=== PATIENT | male | born 1950 | race Two or more races ===

== ENCOUNTER 2024-08-06 14:43 | Emergency (ER) | payer MEDICAID ==
[~2024-08-06] VITALS: Ht 172.7 cm; Wt 81.8 kg
[2024-08-06 14:54] VITALS: TEMP 98.1
[2024-08-06] MEDS ORDERED: AMLO-257 PO (14:57)
[2024-08-06] MEDS ORDERED: APIX5TAB PO (14:57)
[2024-08-06] MEDS ORDERED: BUME1TAB50 PO (14:57)
[2024-08-06] MEDS ORDERED: ATOR40TA28 PO (14:57)
[2024-08-06] MEDS ORDERED: ASPI-1450 PO (14:57)
[2024-08-06] MEDS ORDERED: METO25XL PO (14:57)
[2024-08-06 15:46] LABS: HEMATOCRIT 42.9 % (41-53); HEMOGLOBIN 13.8 g/dL (13.5-17.5); MEAN CORPUSCULAR HEMOGLOBIN 28.4 pg (26.0-34.0); MEAN CORPUSCULAR HGB CONC 32.2 G/dL (31.0-37.0); MEAN CORPUSCULAR VOLUME 88 fL (80-100); PLATELET COUNT (AUTO) 215 K/uL (150-450); RED BLOOD CELL COUNT(AUTO) 4.86 MIL/uL (4.50-5.90); RED CELL DISTRIBUTION WIDTH 14.9 % (11.5-14.5)
[2024-08-06 15:56] LABS: WHITE BLOOD COUNT (AUTO) 56.3 K/uL (4.5-11.0)
[2024-08-06 15:57] LABS: ANION GAP 8 mmol/L (8-16); CALCIUM, TOTAL 8.5 mg/dL (8.8-10.5); CARBON DIOXIDE 26 mmol/L (22-29); CHLORIDE 104 mmol/L (98-107); CREATININE 0.78 mg/dL (0.60-1.30); GLOMERULAR FILTR. RATE CALC > 60 mL/min (>60); GLUCOSE,RANDOM 95 mg/dL (70-110); POTASSIUM 4.1 mmol/L (3.5-5.1); SODIUM SERUM 138 mmol/L (136-145); UREA NITROGEN, BLOOD 23 mg/dL (7-18)
[2024-08-06 15:58] LABS: BAND NEUTROPHILS % (MANUAL) 0 % (0-5)
[2024-08-06 16:01] LABS: B-TYPE NATRIURETIC PEPTIDE 975 pg/mL (0-100)
[2024-08-06 16:02] LABS: CREATINE KINASE, TOTAL ONLY 39 U/L (39-308)
[2024-08-06 16:16] LABS: TROPONIN I-HIGH SENSITIVITY 30 ng/L (<76)
[2024-08-06 16:46] LABS: APPEARANCE,URINE CLEAR (CLEAR); BILIRUBIN,URINE NEGATIVE (NEGATIVE); COLOR,URINE LIGHT YELLOW (YELLOW); GLUCOSE, URINE (UA) NEGATIVE (NEGATIVE); KETONES,URINE NEGATIVE (NEGATIVE); LEUKOCYTE ESTERASE ,URINE NEGATIVE (NEGATIVE); NITRATE,URINE NEGATIVE (NEGATIVE); OCCULT BLOOD,URINE NEGATIVE (NEGATIVE); PH,URINE 5.5 (5.0-8.0); PROTEIN,URINE TRACE mg/dL (NEGATIVE); SPECIFIC GRAVITIY, URINE 1.029 (1.003-1.030); UROBILINOGEN,URINE <=1.0 mg/dL (<=1.0)
[2024-08-06 17:13] LABS: LYMPHOCYTES % (MANUAL) 10 % (22-44); MONOCYTES % (MANUAL) 5 % (2-9); REACTIVE LYMPHOCYTES 68 % (0-0); SEGMENTED NEUTROPHILS % 17 % (40-70); TOTAL CELLS COUNTED 100
[2024-08-06 17:14] LABS: RBC MORPHOLOGY COMMENT ABNORMAL RBC MORPH
[2024-08-06 17:16] LABS: ALANINE AMINOTRANSFERASE 10 U/L (12-78); ALBUMIN 3.6 g/dL (3.4-5.0); ALKALINE PHOSPHATASE 132 U/L (46-116); ASPARTATE AMINOTRANSFERASE 29 U/L (15-37); BILIRUBIN,TOTAL 0.4 mg/dL (0.1-1.0); C-REACTIVE PROTEIN QUANT 0.12 mg/dL (0.00-0.30); TOTAL PROTEIN, SERUM 7.5 g/dL (6.4-8.2)
[2024-08-06] MEDS: FUROSEMIDE 40 MG/4 ML VIAL IVP ONE (18:38)
[2024-08-06 19:31] VITALS: PULSE 74
[2024-08-06] MEDS: SODIUM CHLORIDE 0.9% 500 ML IV ONE (19:42)
[2024-08-06 19:44] VITALS: BP 107/60; RESP 21; O2SAT 94
[2024-08-06 20:07] LABS: LACTIC ACID 1.2 mmol/L (0.4-2.0)
[2024-08-06 20:08] LABS: COVID AG,FIA SOURCE NASAL SWAB
[2024-08-06 20:29] LABS: SARS-COV2 (COVID) ANTIGEN,FIA Negative (Negative)
[2024-08-06 20:33] LABS: INFLUENZA TYPE A NEGATIVE FOR TYPE A (NEGATIVE); INFLUENZA TYPE B NEGATIVE FOR TYPE B (NEGATIVE)
[2024-08-06] MEDS ORDERED: DAPA10TA PO (23:54)
[2024-08-06] MEDS ORDERED: TICA90TA PO (23:54)
== END 2024-08-07 01:00 | disposition short-term general hospital (02) ==
LOC: EMS 14:43
DX: D72.820 Lymphocytosis (symptomatic) (principal); I11.0 Hypertensive heart disease with heart failure; I50.9 Heart failure, unspecified; R06.02 Shortness of breath; F17.210 Nicotine dependence, cigarettes, uncomplicated; Z79.01 Long term (current) use of anticoagulants; Z79.82 Long term (current) use of aspirin; Z95.5 Presence of coronary angioplasty implant and graft; Z79.899 Other long term (current) drug therapy; Z20.822 Contact with and (suspected) exposure to COVID-19
CPT/HCPCS: 99285; 96374; 71045; 96361; 87426; 80048; 80076; 81003; 82550; 83605; 83880; 84484; 85025; 85379; 85651; 86140; 87804; 93005; 84145; 36415; J1940; J7040